=== PATIENT | male | born 2000 | race American Indian/Alaskan Native ===

== ENCOUNTER 2022-03-15 06:53 | Emergency (ER) | payer OTHER ==
[2022-03-15] MEDS ORDERED: clonazePAM 0.5 MG TAB PO ONE (10:31)
--- NOTE | 2022-03-15 10:38 | Emergency Department Report ---
ED General Adult HPI - General Chief complaint: Anxiety Stated complaint: ANXIETY Source: patient Mode of arrival: Ambulatory Limitations: No Limitations - History of Present Illness Initial comments: Patient is a 21-year-old -[place] male with a history of chronic anxiety and depression who presents to the ED with complaint of acute exacerbation of his chronic anxiety characterized by chest tightness, palpitations, delusional thoughts of danger coming to him, insomnia, and lack of appetite for the last 3 weeks. Patient states that he has not taken any medications recently or previously for his chronic anxiety and depression. Patient states that her thoughts are worse when he gets home after work and that he has not been able to sleep well in the last 1 week. Patient denies chest pain, shortness of breath, nausea and vomiting, diaphoresis, abdominal pain, fever, chills, cough, headache, dizziness or syncope, suicidal or homicidal ideations and hallucinati ons. -: Gradual, week(s) (3) Location: head, chest Severity scale (0 -10): 0 Quality: dull Improves with: none Worsens with: none Associated Symptoms: denies other symptoms, chest pain (Chest tightness), malaise, shortness of breath. denies: confusion, cough, diaphoresis, fever/chills, headaches, loss of appetite, nausea/vomiting, rash, seizure, syncope, weakness, other Treatments Prior to Arrival: none - Related Data Previous Rx's Medication Instructions Recorded Last Taken Type hydrOXYzine PAMOATE [Vistaril] 50 mg PO Q8HR PRN #40 capsule 03/15/22 Unknown Rx Allergies Allergy/AdvReac Type Severity Reaction Status Date / Time No Known Allergies Allergy Verified 03/15/22 07:22 ED Review of Systems ROS: Stated complaint: ANXIETY Other details as noted in HPI Constitutional: malaise. denies: chills, fever Eyes: denies: eye pain, eye discharge, vision change ENT: denies: ear pain, throat pain Respiratory: denies: cough, shortness of breath, wheezing Cardiovascular: denies: chest pain, palpitations Endocrine: no symptoms reported Gastrointestinal: denies: abdominal pain, nausea, vomiting, diarrhea Genitourinary: denies: urgency, dysuria Musculoskeletal: denies: back pain, joint swelling, arthralgia Skin: denies: rash, lesions Neurological: denies: headache, weakness, paresthesias Psychiatric: anxiety. denies: depression, auditory hallucinations, visual hallucinations, homicidal thoughts, suicidal thoughts Hematological/Lymphatic: denies: easy bleeding, easy bruising ED Past Medical Hx - Past Medical History Previous Medical History?: No - Medications Home Medications: Home Medications Medication Instructions Recorded Confirmed Last Taken Type hydrOXYzine PAMOATE [Vistaril] 50 mg PO Q8HR PRN #40 capsule 03/15/22 Unknown Rx ED Physical Exam - General Limitations: No Limitations General appearance: alert, in no apparent distress - Head Head exam: Present: atraumatic, normocephalic, normal inspection - Eye Eye exam: Present: normal appearance, PERRL, EOMI Pupils: Present: normal accommodation - ENT ENT exam: Present: normal exam, normal orophraynx, mucous membranes moist, TM's normal bilaterally, normal external ear exam - Neck Neck exam: Present: normal inspection, full ROM. Absent: tenderness - Respiratory Respiratory exam: Present: normal lung sounds bilaterally. Absent: respiratory distress, wheezes, rales, rhonchi, chest wall tenderness, accessory muscle use, decreased breath sounds, prolonged expiratory - Cardiovascular Cardiovascular Exam: Present: regular rate, normal rhythm, normal heart sounds. Absent: systolic murmur, diastolic murmur, rubs, gallop - GI/Abdominal GI/Abdominal exam: Present: soft, normal bowel sounds. Absent: tenderness, guarding, hyperactive bowel sounds, hypoactive bowel sounds, organomegaly - Extremities Exam Extremities exam: Present: normal inspection, full ROM, normal capillary refill. Absent: tenderness - Back Exam Back exam: Present: normal inspection, full ROM. Absent: tenderness, CVA tenderness (R), CVA tenderness (L), muscle spasm, paraspinal tenderness - Neurological Exam Neurological exam: Present: alert, oriented X3, CN II-XII intact, normal gait, reflexes normal - Psychiatric Psychiatric exam: Present: normal mood, depressed, anxious, flat affect. Absent: agitated, manic, homicidal ideation, suicidal ideation - Skin Skin exam: Present: warm, dry, intact, normal color. Absent: rash ED Course Vital Signs 03/15/22 07:17 Temperature 98.2 F Pulse Rate 71 Respiratory 16 Rate Blood Pressure 145/67 [Right] O2 Sat by Pulse 98 Oximetry ED Medical Decision Making - Medical Decision Making This is a 21-year-old -[place] male with a history of chronic anxiety and depression who presents to the ED with complaint of acute exacerbation of his chronic anxiety characterized by chest tightness, palpitations, delusional thoughts of danger coming to him, insomnia, and lack of appetite for the last 3 weeks. Patient states that he has not taken any medications recently or previously for his chronic anxiety and depression. Patient states that her thoughts are worse when he gets home after work and that he has not been able to sleep well in the last 1 week. In the ED, patient is alert and oriented x3 and is not in any distress. Patient was treated in the ED for anxiety. Patient will discharge home on medications and advised to follow-up with his primary care physician in 7 to 10 days for reevaluation or return to the ED immediately if symptoms get worse. - Differential Diagnosis Anxiety; depression; insomnia; Critical care attestation.: If time is entered above; I have spent that time in minutes in the direct care of this critically ill patient, excluding procedure time. ED Disposition Clinical Impression: Anxiety as acute reaction to exceptional stress, Depression with anxiety Insomnia Qualifiers: Insomnia type: due to other mental disorder Qualified Code(s): F51.05 - Insomnia due to other mental disorder; F99 - Mental disorder, not otherwise specified Disposition: 01 HOME / SELF CARE / HOMELESS Is pt being admited?: No Does the pt Need Aspirin: No Condition: Stable Instructions: Generalized Anxiety Disorder, Adult, Insomnia Additional Instructions: Take medication with food, drink plenty of fluids, follow-up with your primary care physician in 7 to 10 days for reevaluation. Return to the ED immediately if symptoms get worse. Prescriptions: hydrOXYzine PAMOATE [Vistaril] 50 mg PO Q8HR PRN #40 capsule PRN Reason: Anxiety Referrals: [facility] [Provider Group] - 7-10 days Time of Disposition: 10:39 Print Language: BURKIN[place]
[2022-03-15 12:27] VITALS: BP 138/86
== END 2022-03-15 12:25 | disposition home or self-care (01) ==
LOC: ED 06:53
DX: F41.1 Generalized anxiety disorder (principal); F43.0 Acute stress reaction; F41.8 Other specified anxiety disorders; Z79.899 Other long term (current) drug therapy
CPT/HCPCS: 99282